=== PATIENT | female | born 1945 | race Caucasian/White ===

== ENCOUNTER 2021-09-05 11:10 | Outpatient (CLI) | payer MEDICARE ==
[2021-09-05 12:14] LABS: Prothrombin Time 11.3 sec (9.5-12.1)
[2021-09-05 12:17] LABS: Bilirubin Neg (Negative); Blood, Urine Negative (Negative); Clarity Clear (Clear); Glucose, Urine (Dipstick) Normal (Negative); Ketone, Urine Negative (Negative); Leukocyte 100 (Negative); Nitrite Negative (Negative); Protein, Urine (Dipstick) Negative (Neg-Trace); Urobilinogen Normal mg/dL (Less than 2); pH, Urine 6.5 (5.0-9.0)
[2021-09-05 12:18] LABS: Anion Gap 14 mmol/L (10-20); BUN (Urea Nitrogen) 13 mg/dL (9.8-20.1); Calc. Creatinine Clearance 0 mL/min (70-130); Calcium 9.4 mg/dL (7.8-10.44); Carbon Dioxide 28 mmol/L (23-31); Chloride 100 mmol/L (98-107); Glucose 91 mg/dL (83-110); Potassium 4.5 mmol/L (3.5-5.1); Sodium 137 mmol/L (136-145)
[2021-09-05 12:22] LABS: #Eosinphils 0.2 10x3/uL (0.0-0.5); #Neutrophils 4.4 10x3/uL (1.5-8.4); %Basophils 0.6 % (0.0-2.0); %Lymphocytes 15.4 % (18.0-47.0); %Monocytes 14.7 % (0.0-10.0); Hemoglobin 11.7 g/dL (12.0-15.5); Mean Corpuscular HGB CONC 32.7 g/dL (32.0-36.0); Mean Corpuscular Hemoglobin 31.1 pg (27.0-33.0); Mean Corpuscular Volume 95.2 fl (81.6-98.3); Mean Platelet Volume 10.7 fl (7.4-10.4); Platelet Count 300 10x3/uL (150-450); RBC Distribution Width 12.1 % (11.5-14.5); Red Blood Cell (RBC) Count 3.76 10x6/uL (3.90-5.03); White Blood Cell (WBC) Count 6.7 10x3/uL (3.5-10.5)
[2021-09-05 12:59] LABS: Bacteria/HPF Rare-Few HPF (None Seen); RBC/HPF 0-3 HPF (0-3); Renal Epithelial 0-3 HPF (None Seen); Squamous Epithelial 0-3 HPF (0-3); Transitional Epithelial 0-3 HPF (None Seen); WBC/HPF 0-3 HPF (0-3)
[2021-09-06 00:06] LABS: SARS-CoV-2 PCR by NAA Not Detected (NotDetected)
== END 2021-09-05 11:11 | disposition home or self-care (01) ==
LOC: LABBT 11:10
PROVIDERS: ATTEND Orthopaedic Surgery
DX: Z01.818 Encounter for other preprocedural examination (principal); M16.11 Unilateral primary osteoarthritis, right hip; Z20.822 Contact with and (suspected) exposure to COVID-19
CPT/HCPCS: 80048; 81003; 81015; 85025; 85610; 87081; 93005; 93010; U0003; U0005

== ENCOUNTER 2021-09-10 06:37 | Inpatient (IN) | payer MEDICARE ==
[2021-09-09 13:52] VITALS: BMI 23.0
[2021-09-10] MEDS ORDERED: Vancomycin 1 GM/200 ML BAG ONE (07:40)
[2021-09-10] MEDS ORDERED: Sodium Chloride 0.9% 100 ML ONE (07:40)
[2021-09-10] MEDS ORDERED: Tranexamic Acid 1,000 MG/10 ML VIAL ONE (07:40)
[2021-09-10] MEDS ORDERED: Fentanyl 100 MCG/2 ML VIAL ONE ×2 (07:41→09:19)
[2021-09-10] MEDS ORDERED: Midazolam HCl 2 mg/2 ml Vial ONE (07:41)
[2021-09-10] MEDS ORDERED: Zolpidem Tartrate 5 MG TAB PO PRN (09:17)
[2021-09-10] MEDS ORDERED: Ondansetron PF 4 MG/2 ML Vial IVP PRN (09:17)
[2021-09-10] MEDS ORDERED: diphenhydrAMINE 25 MG CAP PO PRN (09:17)
[2021-09-10] MEDS ORDERED: traMADol HCl 50 MG TAB PO PRN (09:17)
[2021-09-10] MEDS ORDERED: Promethazine HCl 25 MG/ML VIAL IM PRN ×2 (09:17→10:47)
[2021-09-10] MEDS ORDERED: Acetaminophen 325 MG TAB PO PRN (09:17)
[2021-09-10] MEDS ORDERED: Propofol 500 MG/50 ML VIAL ONE (09:19)
[2021-09-10] MEDS ORDERED: Lorazepam 0.5 MG TAB PO PRN (09:19)
[2021-09-10] MEDS ORDERED: CEFAZOLIN 2 GM in Premix Bag 1 BAG IVPB SCH (09:30)
[2021-09-10] MEDS ORDERED: PHENYLEPHRINE-NS 100 MCG/ML 10 ML SYRINGE ONE (09:40)
[2021-09-10] MEDS ORDERED: ePHEDrine 50 MG/ML VIAL ONE (09:40)
[2021-09-10] MEDS ORDERED: PROPOFOL 200 MG/20 ML VIAL ONE (09:40)
[2021-09-10] MEDS ORDERED: Meperidine HCl/PF 25 MG/ML VIAL SLOW IVP PRN (10:47)
[2021-09-10] MEDS ORDERED: Ondansetron HCl/PF 4 MG/2 ML Vial IVP PRN (10:47)
[2021-09-10] MEDS ORDERED: PACU-Morphine 4MG/ML VIAL SLOW IVP PRN (10:47)
[2021-09-10] MEDS ORDERED: Promethazine HCl 25 MG/ML VIAL IVPB PRN (10:47)
[2021-09-10] MEDS: HYDROcodone/Acetaminophen 10/325 mg Tablet PO PRN ×2 (13:02→18:25)
[2021-09-10] MEDS: Ketorolac Tromethamine 30 MG/ML VIAL IVP SCH ×2 (13:03→22:28)
[2021-09-10] MEDS ORDERED: Lisinopril 10 MG TAB PO SCH (13:15)
[2021-09-10] MEDS ORDERED: CEFAZOLIN 2 GM in Sodium Chloride 0.9% 100 ML IVPB SCH (14:00)
[2021-09-10] MEDS ORDERED: Fentanyl 100 MCG/2 ML VIAL SLOW IVP PRN (15:42)
[2021-09-10] MEDS: CEFAZOLIN 2 GM, Admixture Fee 1 EACH in Sodium Chloride 0.9% 100 ML IVPB SCH (18:22)
[2021-09-10] MEDS: Sodium Chloride 0.9% 1,000 ML IV SCH ×2 (18:23→20:38)
[2021-09-10] MEDS: Ferrous Gluconate 324 MG TAB PO SCH (20:37)
[2021-09-10] MEDS: Senokot S 8.6-50 MG TAB PO SCH (20:37)
[2021-09-10] MEDS: Aspirin 81 mg Enteric Coated Tablet PO SCH (20:37)
[2021-09-10] MEDS ORDERED: Lorazepam 1 MG TAB PO PRN (20:42)
[2021-09-11] MEDS: CEFAZOLIN 2 GM, Admixture Fee 1 EACH in Sodium Chloride 0.9% 100 ML IVPB SCH (02:58)
[2021-09-11] MEDS: HYDROcodone/Acetaminophen 10/325 mg Tablet PO PRN ×2 (03:00→10:57)
[2021-09-11] MEDS: Sodium Chloride 0.9% 1,000 ML IV SCH (03:04)
[2021-09-11 05:42] LABS: Hemoglobin 9.6 g/dL (12.0-16.0); Mean Corpuscular HGB CONC 33.5 g/dL (32.0-36.0); Mean Corpuscular Hemoglobin 32.2 pg (27.0-31.0); Mean Platelet Volume 7.7 fL (7.4-10.4); Platelet Count 198 thou/uL (130-400); RBC Distribution Width 12.1 % (11.5-14.5); Red Blood Cell (RBC) Count 2.98 mill/uL (4.20-5.40); White Blood Cell (WBC) Count 6.4 thou/uL (4.8-10.8)
[2021-09-11] MEDS ORDERED: Levothyroxine Sodium 75 MCG TAB PO SCH (06:00)
[2021-09-11] MEDS: Ketorolac Tromethamine 30 MG/ML VIAL IVP SCH ×2 (06:10→15:15)
[2021-09-11] MEDS: Ferrous Gluconate 324 MG TAB PO SCH (08:28)
[2021-09-11] MEDS: Aspirin 81 mg Enteric Coated Tablet PO SCH (08:28)
[2021-09-11] MEDS: Senokot S 8.6-50 MG TAB PO SCH (08:29)
[2021-09-11] MEDS ORDERED: Rosuvastatin 20 MG TAB PO SCH (09:00)
[2021-09-11] MEDS ORDERED: Venlafaxine HCl XR 150 MG CAP PO SCH (09:00)
[2021-09-11] MEDS ORDERED: Bupropion 100 MG SR TAB PO SCH (09:00)
[2021-09-11] MEDS ORDERED: Lisinopril 10 MG TAB PO SCH (09:00)
[2021-09-11] MEDS ORDERED: Non-Formulary Item 1 EACH (Levothyroxine Sodium [Levothyroxine] 75 MCG Capsule) PO SCH (09:00)
[2021-09-11] MEDS ORDERED: Non-Formulary Item 1 EACH (Esomeprazole Magnesium [Nexium Oral Suspension] 40 MG Suspdr.P PO SCH (09:00)
[2021-09-11] MEDS ORDERED: Multivitamin W/ Minerals 1 TAB PO SCH (09:00)
[2021-09-11 12:33] VITALS: BP 130/76; TEMP 98.4
== END 2021-09-11 15:37 | disposition home or self-care (01) | DRG 470 ==
LOC: SDC 06:37 → SURG A 09:17 → EDSTATUS 11:00
PROVIDERS: ADMIT Orthopaedic Surgery; ATTEND Orthopaedic Surgery
PROC: 0SR9049 Replacement of Right Hip Joint with Ceramic on Polyethylene Synthetic Substitute, Cemented, Open Approach (ICD-10-PCS; principal; 2021-09-10)
DX: M16.11 Unilateral primary osteoarthritis, right hip (principal); I10 Essential (primary) hypertension; E78.5 Hyperlipidemia, unspecified; E03.9 Hypothyroidism, unspecified; Z96.653 Presence of artificial knee joint, bilateral; Z20.822 Contact with and (suspected) exposure to COVID-19; F32.A Depression, unspecified; F41.9 Anxiety disorder, unspecified; K21.9 Gastro-esophageal reflux disease without esophagitis; Z90.710 Acquired absence of both cervix and uterus; Z79.899 Other long term (current) drug therapy
CPT/HCPCS: 36415; 85027; C1713; J0690; J1885; J2250; J2704; J3010; J3370; J3490; J7050